=== PATIENT | male | born 1935 | race Caucasian/White ===

== ENCOUNTER 2017-03-08 18:52 | Inpatient (IN) | payer MEDICARE ==
[~2017-03-08] VITALS: Ht 175.2 cm; Wt 95.8 kg
--- NOTE | ~2017-03-08 | EKG ---
[place], [place] ELECTROCARDIOGRAM REPORT NAME: KRISTI COLINDRES UNIT #: [id number] ROOM: [id number] DOCTOR: BOGDAN PAGAN MD BIRTHDATE: [birth year] DOS: 03/08/2017 TIME: 2048 hours. FINDINGS: 1. Normal sinus rhythm at a rate of 80 with first-degree AV block. 2. Leftward axis. 3. Poor precordial R-wave progression. 4. Abnormal electrocardiogram. BOGDAN PAGAN MD CM:EKGRPT:ELECTROCARDIOGRAM REPORT [id number] BOGDAN PAGAN MD
[~2017-03-08 18:52] MED LIST: ALBUTEROL2.5 MG/0.5 INH; ALLOPURINOL100 MG PO; AMLODIPINE BESYL5 MG PO; CALCITRIOL0.25 MCG PO; CETIRIZINE10 MG PO; CIPROFLOXACIN500 MG PO; CITRIZINE; COLSALIDE IMPR0.6 MG PO; DOCUSATE SODIU100 M2 PO; FUROSEMIDE40 MG PO; HYDROCHLOROTHIA25 MG PO; KEFLEX500 MG PO; LEVAQUIN250 M1 PO; LEVOTHYROXINE0.05 M1 PO; LOMOTIL 0.025 M1 TA1 PO; MAGNESIUM OXID400 MG PO; MEDROL DOSEPAK4 MG PO; Magnesium Oxid400 MG PO; NIFEDIPINE90 MG PO; NISOLDIPINE; PENNSAID112 GM TP; PERCOCET 325 MG1 TA7 PO; PRANDIN1 MG PO; REPAGLINIDE1 M1 PO; TERAZOSIN HCL1 M1 PO; VITAMIN D50000 I3 PO; ZITHROMAX250 MG PO; ZOCOR40 MG PO; ZOFRAN ODT4 MG SL; ZOFRAN4 MG PO; ZYRTEC10 MG PO
[2017-03-08 19:04] VITALS: BP 120/76
[2017-03-08 20:43] VITALS: BP 91/46; BP 98/46; BP 99/39
[2017-03-08 21:11] VITALS: BP 133/56
[2017-03-08 21:49] LABS: BASO % 0.2 % (0.0-1.0); EOS # 0.1 10*3/uL (0.0-0.4); EOS % 1.6 % (1.0-4.0); HEMATOCRIT 25.7 % (42.0-52.0); HEMOGLOBIN 8.2 g/dl (14.0-18.0); LYMPH # 2.4 10*3/uL (1.3-4.4); LYMPH % 29.2 % (27.0-41.0); MEAN CELL VOLUME 103.6 fl (80.0-94.0); MEAN CORPUSCULAR HGB 33.1 pg (27.0-31.0); MEAN CORPUSCULAR HGB CONC 31.9 g/dl (33.0-37.0); MEAN PLATELET VOLUME 9.6 fl (9.6-12.3); MONO # 0.5 10*3/uL (0.1-1.0); MONO % 6.5 % (3.0-9.0); NEUT # 5.1 10*3/uL (2.3-7.9); NEUT % 62.3 % (47.0-73.0); PLATELET COUNT AUTOMATED 335 10*3/uL (130-400); RED BLOOD COUNT 2.48 10*6/uL (4.50-5.90); RED CELL DISTRI WIDTH 12.4 % (0-14.5); WHITE BLOOD COUNT 8.1 10*3/uL (4.8-10.8)
[2017-03-08 21:53] LABS: POTASSIUM 4.4 mmol/L (3.5-5.1)
[2017-03-08 22:30] VITALS: BP 123/47; BP 96/38
[2017-03-09] VITALS: BP 100/42
[2017-03-09 00:46] LABS: CKMB 1.1 ng/ml (0.5-3.6); CPK 97 U/L (39-308)
[2017-03-09 00:47] LABS: TROPONIN I < 0.015 ng/ml (<0.045)
[2017-03-09 04:00] VITALS: BP 134/60
[2017-03-09 06:58] LABS: HEMATOCRIT 22.1 % (42.0-52.0); HEMOGLOBIN 7.5 g/dl (14.0-18.0); MEAN CORPUSCULAR HGB 33.3 pg (27.0-31.0); MEAN CORPUSCULAR HGB CONC 33.9 g/dl (33.0-37.0); MEAN PLATELET VOLUME 10.2 fl (9.6-12.3); PLATELET COUNT AUTOMATED 265 10*3/uL (130-400); RED BLOOD COUNT 2.25 10*6/uL (4.50-5.90); RED CELL DISTRI WIDTH 12.7 % (0-14.5); WHITE BLOOD COUNT 8.9 10*3/uL (4.8-10.8)
[2017-03-09 07:02] LABS: MEAN CELL VOLUME 98.2 fl (80.0-94.0)
[2017-03-09 07:14] LABS: POTASSIUM 4.4 mmol/L (3.5-5.1)
[2017-03-09 07:25] LABS: ALBUMIN 2.8 gm/dl (3.1-4.5); BILIRUBIN, TOTAL 0.5 mg/dl (0.2-1.0); MAGNESIUM 1.7 mg/dL (1.5-2.1); PHOSPHOROUS 2.2 mg/dL (2.5-4.9); TOTAL PROTEIN 5.8 gm/dL (6.4-8.2)
[2017-03-09 07:30] LABS: CPK 157 U/L (39-308); TROPONIN I < 0.015 ng/ml (<0.045)
[2017-03-09 07:40] LABS: HEMOGLOBIN A1c 5.3 % (4.8-5.6)
[2017-03-09 08:00] VITALS: BP 113/56
[2017-03-09] MEDS ORDERED: ZYRTEC10 MG PO (09:36)
[2017-03-09] MEDS ORDERED: TRIPHROCAPS SOFT1 MG PO (09:36)
[2017-03-09 12:00] VITALS: BP 120/56
[2017-03-09 12:46] LABS: CPK 156 U/L (39-308)
[2017-03-09 12:47] LABS: TROPONIN I < 0.015 ng/ml (<0.045)
[2017-03-09 16:00] VITALS: BP 128/37
[2017-03-09 20:00] VITALS: BP 140/64
[2017-03-10] VITALS: BP 102/50
[2017-03-10 08:00] VITALS: BP 152/56
[2017-03-10 12:00] VITALS: BP 131/60
== END 2017-03-10 16:10 | disposition home health service (06) | DRG 314 ==
LOC: ED 18:52 → EDHOLD 21:40 → 4E 21:40
PROVIDERS: Student in an Organized Health Care Education/Training Program
DX: I95.9 Hypotension, unspecified (principal); N18.6 End stage renal disease; E44.0 Moderate protein-calorie malnutrition; E83.39 Other disorders of phosphorus metabolism; E11.22 Type 2 diabetes mellitus with diabetic chronic kidney disease; I12.0 Hypertensive chronic kidney disease with stage 5 chronic kidney disease or end stage renal disease; Q61.3 Polycystic kidney, unspecified; S89.90XA Unspecified injury of unspecified lower leg, initial encounter; D53.9 Nutritional anemia, unspecified; W18.30XA Fall on same level, unspecified, initial encounter; Y93.89 Activity, other specified; Y92.89 Other specified places as the place of occurrence of the external cause; Y99.8 Other external cause status; N40.0 Benign prostatic hyperplasia without lower urinary tract symptoms; Z99.2 Dependence on renal dialysis; M1A.9XX0 Chronic gout, unspecified, without tophus (tophi); E03.9 Hypothyroidism, unspecified; Z98.42 Cataract extraction status, left eye; Z98.41 Cataract extraction status, right eye; Z83.3 Family history of diabetes mellitus; E66.9 Obesity, unspecified; Z68.31 Body mass index [BMI] 31.0-31.9, adult; K57.30 Diverticulosis of large intestine without perforation or abscess without bleeding

== ENCOUNTER → 2017-07-25 | Outpatient (CLI) | payer MEDICARE ==
[~2017-07-25] MED LIST changes: +TRIPHROCAPS SOFT1 MG PO
[2017-07-25 12:12] LABS: THYROID STIM HORMONE (HS) 3.53 uIU/ml (0.358-4.75)
== END | disposition home or self-care (01) ==
LOC: LAB 11:12
PROVIDERS: Family Medicine
DX: E11.9 Type 2 diabetes mellitus without complications (principal); E78.00 Pure hypercholesterolemia, unspecified; E03.9 Hypothyroidism, unspecified

== ENCOUNTER 2018-10-25 13:12 | Emergency (ER) | payer MEDICARE, MEDICAID ==
[~2018-10-25] VITALS: Ht 175.2 cm
[2018-10-25 13:16] VITALS: BP 152/55
[2018-10-25 15:01] LABS: BASO % 0.6 % (0.0-1.0); EOS # 0.2 10*3/uL (0.0-0.4); EOS % 3.9 % (1.0-4.0); HEMATOCRIT 37.5 % (42.0-52.0); HEMOGLOBIN 11.8 g/dl (14.0-18.0); LYMPH # 1.3 10*3/uL (1.3-4.4); LYMPH % 24.5 % (27.0-41.0); MEAN CELL VOLUME 103.6 fl (80.0-94.0); MEAN CORPUSCULAR HGB 32.6 pg (27.0-31.0); MEAN CORPUSCULAR HGB CONC 31.5 g/dl (33.0-37.0); MONO # 0.6 10*3/uL (0.1-1.0); MONO % 10.9 % (3.0-9.0); NEUT # 3.2 10*3/uL (2.3-7.9); NEUT % 59.7 % (47.0-73.0); PLATELET COUNT AUTOMATED 159 10*3/uL (130-400); RED BLOOD COUNT 3.62 10*6/uL (4.50-5.90); RED CELL DISTRI WIDTH 12.6 % (0-14.5); WHITE BLOOD COUNT 5.4 10*3/uL (4.8-10.8)
[2018-10-25 15:17] LABS: ALBUMIN 3.3 gm/dl (3.1-4.5); CREATININE 2.11 mg/dL (0.70-1.30); POTASSIUM 4.5 mmol/L (3.5-5.1); TOTAL PROTEIN 6.8 gm/dL (6.4-8.2)
== END 2018-10-25 16:09 | disposition home or self-care (01) ==
LOC: ED 13:12
PROVIDERS: Emergency Medicine
DX: K40.90 Unilateral inguinal hernia, without obstruction or gangrene, not specified as recurrent (principal); L30.4 Erythema intertrigo; E78.5 Hyperlipidemia, unspecified; E66.9 Obesity, unspecified; E03.9 Hypothyroidism, unspecified; M10.9 Gout, unspecified; I12.0 Hypertensive chronic kidney disease with stage 5 chronic kidney disease or end stage renal disease; E11.22 Type 2 diabetes mellitus with diabetic chronic kidney disease; N18.6 End stage renal disease; Z99.2 Dependence on renal dialysis; Z79.899 Other long term (current) drug therapy

== ENCOUNTER → 2018-12-14 | Day surgery (SDC) | payer MEDICARE ==
[~2018-12-14] VITALS: Ht 175.2 cm; Wt 90.7 kg
[~2018-12-14] MED LIST changes: +ACTOS15 M1 PO; +ASPIR LOW81 MG PO; +COLACE100 MG PO; +NORCO 5-325 TA1 EACH PO
[2018-12-14 07:00] VITALS: BP 140/61
--- NOTE | 2018-12-14 08:07 | NUR ---
RIGHT GROIN SHAVED WITH CLIPPERS. REDDENED AREAS NOTED ON THIGHS, UPPER ABDOMEN, BACK, AND UPPER ARRMS. PT. STATES THAT HE THINKS HE HAD ALLERGIC REACTION TO SOMETHING AND STATES THAT DR. NICKERSON IS AWARE.
[2018-12-14 11:22] VITALS: BP 143/55
[2018-12-14 11:37] VITALS: BP 126/50
[2018-12-14 11:52] VITALS: BP 129/51
[2018-12-14 12:07] VITALS: BP 132/52
[2018-12-14 12:34] VITALS: BP 129/52
== END | disposition home or self-care (01) ==
LOC: SDC 11-22 12:30 → EDSTATUS 12-13 14:45 → SDC 12-13 14:45
PROVIDERS: Anesthesiology
DX: K40.90 Unilateral inguinal hernia, without obstruction or gangrene, not specified as recurrent (principal); K29.70 Gastritis, unspecified, without bleeding; I13.2 Hypertensive heart and chronic kidney disease with heart failure and with stage 5 chronic kidney disease, or end stage renal disease; E11.22 Type 2 diabetes mellitus with diabetic chronic kidney disease; N18.6 End stage renal disease; I50.9 Heart failure, unspecified; E11.40 Type 2 diabetes mellitus with diabetic neuropathy, unspecified; J44.9 Chronic obstructive pulmonary disease, unspecified; N40.0 Benign prostatic hyperplasia without lower urinary tract symptoms; F32.9 Major depressive disorder, single episode, unspecified; E66.9 Obesity, unspecified; Z68.29 Body mass index [BMI] 29.0-29.9, adult; Z88.0 Allergy status to penicillin; Z90.49 Acquired absence of other specified parts of digestive tract; Z98.890 Other specified postprocedural states; Z98.41 Cataract extraction status, right eye; Z79.82 Long term (current) use of aspirin; Z83.3 Family history of diabetes mellitus; Z79.899 Other long term (current) drug therapy

== ENCOUNTER → 2019-10-05 | Outpatient (CLI) | payer MEDICARE, OTHER ==
[2019-10-05 11:50] LABS: ALBUMIN 3.3 gm/dl (3.1-4.5); BILIRUBIN, DIRECT 0.2 mg/dL (0.0-0.2); TOTAL PROTEIN 6.9 gm/dL (6.4-8.2)
[2019-10-05 11:55] LABS: THYROID STIM HORMONE (HS) 5.77 uIU/ml (0.358-4.75)
== END | disposition home or self-care (01) ==
LOC: LAB 11:01
PROVIDERS: Internal Medicine Nephrology
DX: E11.9 Type 2 diabetes mellitus without complications (principal); E03.9 Hypothyroidism, unspecified; I10 Essential (primary) hypertension

== ENCOUNTER → 2019-12-12 | Outpatient (CLI) | payer OTHER ==
[2019-12-12 11:59] LABS: URIC ACID 0.8 mg/dL (3.5-7.2)
== END | disposition home or self-care (01) ==
LOC: LAB 11:09
PROVIDERS: Family Medicine
DX: E11.9 Type 2 diabetes mellitus without complications (principal); M10.9 Gout, unspecified; E03.9 Hypothyroidism, unspecified; E78.00 Pure hypercholesterolemia, unspecified

== ENCOUNTER 2019-12-23 18:13 | Emergency (ER) | payer MEDICARE, OTHER ==
[~2019-12-23] VITALS: Ht 175.2 cm; Wt 84.4 kg
[2019-12-23 18:15] VITALS: BP 132/66
[2019-12-23 20:40] LABS: BASO % 0.3 % (0.0-1.0); EOS # 0.1 10*3/uL (0.0-0.4); EOS % 1.4 % (1.0-4.0); HEMATOCRIT 34.4 % (42.0-52.0); LYMPH # 1.5 10*3/uL (1.3-4.4); LYMPH % 20.3 % (27.0-41.0); MEAN CELL VOLUME 103.9 fl (80.0-94.0); MEAN CORPUSCULAR HGB 33.2 pg (27.0-31.0); MEAN PLATELET VOLUME 10.4 fl (9.6-12.3); MONO # 0.7 10*3/uL (0.1-1.0); MONO % 8.8 % (3.0-9.0); NEUT # 5.2 10*3/uL (2.3-7.9); NEUT % 69.1 % (47.0-73.0); PLATELET COUNT AUTOMATED 143 10*3/uL (130-400); RED BLOOD COUNT 3.31 10*6/uL (4.50-5.90); WHITE BLOOD COUNT 7.6 10*3/uL (4.8-10.8)
[2019-12-23 20:58] LABS: ALBUMIN 3.1 gm/dl (3.1-4.5); ALKALINE PHOSPHATASE 95 U/L (45-117); BUN 42 mg/dl (7-24); CHLORIDE 105 mmol/L (98-107); CREATININE 4.53 mg/dL (0.70-1.30); POTASSIUM 4.8 mmol/L (3.5-5.1); SGOT/AST 12 IU/L (3-35); SGPT/ALT 16 U/L (12-78); SODIUM 140 mmol/L (136-145); TOTAL PROTEIN 6.1 gm/dL (6.4-8.2)
[2019-12-23 21:01] LABS: TROPONIN I < 0.015 ng/ml (<0.045)
== END 2019-12-23 22:49 | disposition home or self-care (01) ==
LOC: ED 18:13
PROVIDERS: Emergency Medicine
DX: R04.0 Epistaxis (principal); Z90.49 Acquired absence of other specified parts of digestive tract; E78.5 Hyperlipidemia, unspecified; E03.9 Hypothyroidism, unspecified; E66.9 Obesity, unspecified; I13.2 Hypertensive heart and chronic kidney disease with heart failure and with stage 5 chronic kidney disease, or end stage renal disease; E11.22 Type 2 diabetes mellitus with diabetic chronic kidney disease; N18.6 End stage renal disease; I50.9 Heart failure, unspecified; Z99.2 Dependence on renal dialysis; Z88.0 Allergy status to penicillin; Z79.899 Other long term (current) drug therapy; Z79.82 Long term (current) use of aspirin

== ENCOUNTER → 2020-10-01 | Outpatient (CLI) | payer MEDICARE, OTHER ==
[~2020-10-01] MED LIST changes: +DECADRON6 M1 PO
== END | disposition home or self-care (01) ==
LOC: US 09-22 11:30
PROVIDERS: ATTEND Podiatrist
DX: R22.42 Localized swelling, mass and lump, left lower limb (principal)

== ENCOUNTER 2020-11-02 18:24 | Emergency (ER) | payer MEDICARE, OTHER ==
[~2020-11-02] VITALS: Wt 81.6 kg
[2020-11-02 18:24] VITALS: BP 144/69
[~2020-11-02 18:24] MED LIST changes: -DECADRON6 M1 PO
[2020-11-02 19:37] LABS: BASO % 0.2 % (0.0-1.0); EOS % 0.7 % (1.0-4.0); HEMATOCRIT 38.1 % (42.0-52.0); LYMPH # 1.3 10*3/uL (1.3-4.4); LYMPH % 29.3 % (27.0-41.0); MEAN CELL VOLUME 101.6 fl (80.0-94.0); MEAN CORPUSCULAR HGB 31.7 pg (27.0-31.0); MEAN CORPUSCULAR HGB CONC 31.2 g/dl (33.0-37.0); MEAN PLATELET VOLUME 9.6 fl (9.6-12.3); MONO # 0.4 10*3/uL (0.1-1.0); MONO % 9.1 % (3.0-9.0); NEUT # 2.7 10*3/uL (2.3-7.9); PLATELET COUNT AUTOMATED 170 10*3/uL (130-400); RED BLOOD COUNT 3.75 10*6/uL (4.50-5.90); RED CELL DISTRI WIDTH 12.9 % (0-14.5); WHITE BLOOD COUNT 4.4 10*3/uL (4.8-10.8)
[2020-11-02 19:52] LABS: ALBUMIN 2.7 gm/dl (3.1-4.5); CREATININE 4.04 mg/dL (0.70-1.30); POTASSIUM 4.5 mmol/L (3.5-5.1); TOTAL PROTEIN 6.4 gm/dL (6.4-8.2)
[2020-11-02] MEDS ORDERED: ZITHROMAX250 MG PO (20:39)
[2020-11-02] MEDS ORDERED: DECADRON6 M1 PO (20:39)
== END 2020-11-02 21:15 | disposition home or self-care (01) ==
LOC: ED 18:24
PROVIDERS: Internal Medicine
DX: U07.1 COVID-19 (principal); D53.9 Nutritional anemia, unspecified; N18.6 End stage renal disease; J18.9 Pneumonia, unspecified organism; Z88.0 Allergy status to penicillin; Z79.899 Other long term (current) drug therapy; Z79.82 Long term (current) use of aspirin

== ENCOUNTER 2020-12-10 04:47 | Emergency (ER) | payer MEDICARE, OTHER ==
[~2020-12-10] VITALS: Ht 175.2 cm; Wt 85.7 kg
[~2020-12-10 04:47] MED LIST changes: +DECADRON6 M1 PO
[2020-12-10 06:30] LABS: BASO % 0.1 % (0.0-1.0); EOS % 0.4 % (1.0-4.0); HEMATOCRIT 31.5 % (42.0-52.0); LYMPH # 1.7 10*3/uL (1.3-4.4); LYMPH % 14.5 % (27.0-41.0); MEAN CELL VOLUME 99.4 fl (80.0-94.0); MEAN CORPUSCULAR HGB 30.9 pg (27.0-31.0); MEAN CORPUSCULAR HGB CONC 31.1 g/dl (33.0-37.0); MEAN PLATELET VOLUME 9.7 fl (9.6-12.3); MONO # 0.7 10*3/uL (0.1-1.0); MONO % 6.1 % (3.0-9.0); NEUT # 8.9 10*3/uL (2.3-7.9); NEUT % 78.5 % (47.0-73.0); PLATELET COUNT AUTOMATED 222 10*3/uL (130-400); RED BLOOD COUNT 3.17 10*6/uL (4.50-5.90); RED CELL DISTRI WIDTH 13.8 % (0-14.5); WHITE BLOOD COUNT 11.4 10*3/uL (4.8-10.8)
[2020-12-10 06:52] LABS: ALBUMIN 2.4 gm/dl (3.1-4.5); ALKALINE PHOSPHATASE 88 U/L (45-117); BUN 26 mg/dl (7-24); CHLORIDE 107 mmol/L (98-107); CREATININE 3.53 mg/dL (0.70-1.30); LIPASE 46 U/L (73-393); POTASSIUM 3.7 mmol/L (3.5-5.1); SGOT/AST 14 IU/L (3-35); SGPT/ALT 9 U/L (12-78); SODIUM 139 mmol/L (136-145); TOTAL PROTEIN 6.1 gm/dL (6.4-8.2)
[2020-12-10 06:55] LABS: TROPONIN I < 0.015 ng/ml (<0.045)
[2020-12-10 07:30] VITALS: BP 144/56
[2021-02-21] MEDS ORDERED: AVPAK AZITHROM250 MG PO (20:07)
== END 2020-12-10 09:25 | disposition home or self-care (01) ==
LOC: ED 04:47
PROVIDERS: Emergency Medicine
DX: I12.0 Hypertensive chronic kidney disease with stage 5 chronic kidney disease or end stage renal disease (principal); E11.22 Type 2 diabetes mellitus with diabetic chronic kidney disease; N18.6 End stage renal disease; R11.0 Nausea; M10.9 Gout, unspecified; E78.5 Hyperlipidemia, unspecified; E03.9 Hypothyroidism, unspecified; E66.9 Obesity, unspecified; Z79.899 Other long term (current) drug therapy; Z99.2 Dependence on renal dialysis; Z79.82 Long term (current) use of aspirin; Z90.49 Acquired absence of other specified parts of digestive tract; Z98.890 Other specified postprocedural states; Z79.2 Long term (current) use of antibiotics; Z88.0 Allergy status to penicillin

== ENCOUNTER 2021-01-05 20:23 | Emergency (ER) | payer MEDICARE, OTHER ==
[~2021-01-05] VITALS: Ht 170.1 cm; Wt 81.6 kg
[2021-01-05 20:24] VITALS: BP 162/70
[2021-01-05 20:57] LABS: BASO % 0.1 % (0.0-1.0); EOS % 0.3 % (1.0-4.0); LYMPH # 0.8 10*3/uL (1.3-4.4); LYMPH % 12.5 % (27.0-41.0); MEAN PLATELET VOLUME 8.8 fl (9.6-12.3); MONO # 0.5 10*3/uL (0.1-1.0); MONO % 7.3 % (3.0-9.0); NEUT # 5.4 10*3/uL (2.3-7.9); NEUT % 79.5 % (47.0-73.0); PLATELET COUNT AUTOMATED 308 10*3/uL (130-400); RED CELL DISTRI WIDTH 14.6 % (0-14.5); WHITE BLOOD COUNT 6.7 10*3/uL (4.8-10.8)
[2021-01-05 21:13] LABS: ALBUMIN 2.2 gm/dl (3.1-4.5); CREATININE 2.74 mg/dL (0.70-1.30); POTASSIUM 4.3 mmol/L (3.5-5.1); TOTAL PROTEIN 6.2 gm/dL (6.4-8.2)
[2021-02-21] MEDS ORDERED: AVPAK AZITHROM250 MG PO (20:07)
== END 2021-01-05 23:27 | disposition home or self-care (01) ==
LOC: ED 20:23
PROVIDERS: Nurse Practitioner Family
DX: K59.00 Constipation, unspecified (principal); E11.9 Type 2 diabetes mellitus without complications; F32.9 Major depressive disorder, single episode, unspecified; I50.9 Heart failure, unspecified; Z88.0 Allergy status to penicillin; Z79.2 Long term (current) use of antibiotics; Z79.899 Other long term (current) drug therapy; Z79.82 Long term (current) use of aspirin; Z90.89 Acquired absence of other organs; Z90.49 Acquired absence of other specified parts of digestive tract

== ENCOUNTER 2021-02-20 14:09 | Emergency (ER) | payer MEDICARE, OTHER ==
[~2021-02-20] VITALS: Ht 175.2 cm; Wt 84.4 kg
[2021-02-20 15:15] LABS: BASO % 0.2 % (0.0-1.0); EOS # 0.1 10*3/uL (0.0-0.4); EOS % 1.4 % (1.0-4.0); HEMATOCRIT 38.2 % (42.0-52.0); LYMPH # 1.2 10*3/uL (1.3-4.4); LYMPH % 23.8 % (27.0-41.0); MEAN CELL VOLUME 98.2 fl (80.0-94.0); MEAN CORPUSCULAR HGB 29.8 pg (27.0-31.0); MEAN CORPUSCULAR HGB CONC 30.4 g/dl (33.0-37.0); MEAN PLATELET VOLUME 9.8 fl (9.6-12.3); MONO # 0.5 10*3/uL (0.1-1.0); MONO % 9.5 % (3.0-9.0); NEUT # 3.1 10*3/uL (2.3-7.9); NEUT % 64.7 % (47.0-73.0); PLATELET COUNT AUTOMATED 185 10*3/uL (130-400); RED BLOOD COUNT 3.89 10*6/uL (4.50-5.90); RED CELL DISTRI WIDTH 16.5 % (0-14.5); WHITE BLOOD COUNT 4.8 10*3/uL (4.8-10.8)
[2021-02-20 15:25] LABS: ACT PARTIAL THROMBO TIME 29.3 SECONDS (20.0-32.1); INTERNATIONAL NORM RATIO 1.1 (2.0-3.5)
[2021-02-20 15:33] LABS: ALBUMIN 2.4 gm/dl (3.1-4.5); ALKALINE PHOSPHATASE 103 U/L (45-117); BUN 13 mg/dl (7-24); CHLORIDE 99 mmol/L (98-107); CPK 27 U/L (39-308); CREATININE 3.78 mg/dL (0.70-1.30); POTASSIUM 4.1 mmol/L (3.5-5.1); SGOT/AST 6 IU/L (3-35); SGPT/ALT 11 U/L (12-78); SODIUM 134 mmol/L (136-145)
[2021-02-20 15:41] LABS: TROPONIN I < 0.015 ng/ml (<0.045)
[2021-02-20 17:27] VITALS: BP 152/64
[2021-02-20] MEDS ORDERED: ZOFRAN4 MG PO (19:32)
[2021-02-21] MEDS ORDERED: AVPAK AZITHROM250 MG PO (20:07)
== END 2021-02-20 23:39 | disposition home or self-care (01) ==
LOC: ED 14:09
PROVIDERS: Emergency Medicine
DX: R53.83 Other fatigue (principal); G47.00 Insomnia, unspecified; R11.2 Nausea with vomiting, unspecified; J18.9 Pneumonia, unspecified organism; I12.9 Hypertensive chronic kidney disease with stage 1 through stage 4 chronic kidney disease, or unspecified chronic kidney disease; E11.22 Type 2 diabetes mellitus with diabetic chronic kidney disease; N18.6 End stage renal disease; E03.9 Hypothyroidism, unspecified; M10.9 Gout, unspecified; Z88.0 Allergy status to penicillin; Z79.899 Other long term (current) drug therapy; Z79.82 Long term (current) use of aspirin; Z98.890 Other specified postprocedural states; Z90.49 Acquired absence of other specified parts of digestive tract

== ENCOUNTER 2021-04-28 18:35 | Inpatient (IN) | payer MEDICARE, OTHER ==
[~2021-04-28] VITALS: Ht 175.3 cm; Wt 79.6 kg
[~2021-04-28 18:35] MED LIST changes: +AVPAK AZITHROM250 MG PO
[2021-04-28 18:51] VITALS: BP 139/69
[2021-04-28 19:10] LABS: BASO % 0.3 % (0.0-1.0); EOS # 0.1 10*3/uL (0.0-0.4); EOS % 1.1 % (1.0-4.0); HEMATOCRIT 41.5 % (42.0-52.0); LYMPH # 2.5 10*3/uL (1.3-4.4); LYMPH % 38.1 % (27.0-41.0); MEAN CELL VOLUME 105.3 fl (80.0-94.0); MEAN CORPUSCULAR HGB CONC 29.4 g/dl (33.0-37.0); MEAN PLATELET VOLUME 9.2 fl (9.6-12.3); MONO % 14.5 % (3.0-9.0); NEUT % 45.7 % (47.0-73.0); PLATELET COUNT AUTOMATED 257 10*3/uL (130-400); RED BLOOD COUNT 3.94 10*6/uL (4.50-5.90); RED CELL DISTRI WIDTH 14.9 % (0-14.5); WHITE BLOOD COUNT 6.5 10*3/uL (4.8-10.8)
[2021-04-28 20:10] LABS: ALBUMIN 2.6 gm/dl (3.1-4.5); ALKALINE PHOSPHATASE 224 U/L (45-117); BUN 31 mg/dl (7-24); CHLORIDE 100 mmol/L (98-107); CREATININE 4.05 mg/dL (0.70-1.30); POTASSIUM 4.2 mmol/L (3.5-5.1); SGOT/AST 22 IU/L (3-35); SGPT/ALT 27 U/L (12-78); SODIUM 137 mmol/L (136-145); TOTAL PROTEIN 6.8 gm/dL (6.4-8.2)
[2021-04-28 20:16] LABS: TROPONIN I < 0.015 ng/ml (<0.045)
[2021-04-28 20:18] LABS: BILIRUBIN Negative (Negative); BLOOD 2+ (Negative); CLARITY Turbid (Clear); COLOR Yellow (Yellow); GLUCOSE Negative (Negative); KETONE Negative (Negative); LEUKO ESTERASE 3+ (Negative); NITRITE Negative (Negative); PH 7.5 (4.5-8.0); SPECIFIC GRAVITY 1.015 (1.001-1.030)
[2021-04-28 20:26] LABS: WBC TNTC wbc/hpf (0-5)
[2021-04-28 22:00] VITALS: BP 148/50
[2021-04-28 23:17] VITALS: BP 138/62
[2021-04-28 23:30] VITALS: BP 118/58
[2021-04-29] VITALS: BP 118/58
[2021-04-29 06:38] LABS: BASO % 0.4 % (0.0-1.0); EOS # 0.1 10*3/uL (0.0-0.4); EOS % 1.3 % (1.0-4.0); HEMATOCRIT 38.9 % (42.0-52.0); LYMPH # 1.7 10*3/uL (1.3-4.4); LYMPH % 32.1 % (27.0-41.0); MEAN CORPUSCULAR HGB 30.7 pg (27.0-31.0); MEAN CORPUSCULAR HGB CONC 30.6 g/dl (33.0-37.0); MEAN PLATELET VOLUME 9.2 fl (9.6-12.3); MONO # 0.8 10*3/uL (0.1-1.0); MONO % 14.2 % (3.0-9.0); NEUT # 2.8 10*3/uL (2.3-7.9); NEUT % 51.8 % (47.0-73.0); PLATELET COUNT AUTOMATED 255 10*3/uL (130-400); RED BLOOD COUNT 3.87 10*6/uL (4.50-5.90); WHITE BLOOD COUNT 5.4 10*3/uL (4.8-10.8)
[2021-04-29 06:40] LABS: MEAN CELL VOLUME 100.5 fl (80.0-94.0)
[2021-04-29 06:43] LABS: ACT PARTIAL THROMBO TIME 31.6 SECONDS (20.0-32.1)
[2021-04-29 07:24] LABS: POTASSIUM 4.3 mmol/L (3.5-5.1)
[2021-04-29 07:43] LABS: ALBUMIN 2.4 gm/dl (3.1-4.5); CREATININE 4.45 mg/dL (0.70-1.30); THYROID STIM HORMONE (HS) 1.82 uIU/ml (0.358-4.75); TOTAL PROTEIN 6.1 gm/dL (6.4-8.2)
[2021-04-29 08:09] LABS: VITAMIN D, 25-HYDROXY 29.4 ng/mL (30-100)
[2021-04-29 12:00] VITALS: BP 130/100
[2021-04-29 16:00] VITALS: BP 103/57
[2021-04-29 20:00] VITALS: BP 127/50
[2021-04-30] VITALS: BP 118/53
[2021-04-30 08:12] VITALS: BP 144/38
[2021-04-30] MEDS ORDERED: CEFUROXIME AXE250 MG PO (11:50)
[2021-04-30 12:22] VITALS: BP 155/64
== END 2021-04-30 14:10 | disposition home or self-care (01) | DRG 689 ==
LOC: ED 18:35 → EDHOLD 21:52 → 4E 21:52
PROVIDERS: Emergency Medicine; Hospitalist; Physician Assistant; ADMIT Student in an Organized Health Care Education/Training Program; ATTEND Student in an Organized Health Care Education/Training Program
DX: N39.0 Urinary tract infection, site not specified (principal); N18.6 End stage renal disease; E44.0 Moderate protein-calorie malnutrition; I12.0 Hypertensive chronic kidney disease with stage 5 chronic kidney disease or end stage renal disease; E03.9 Hypothyroidism, unspecified; N40.0 Benign prostatic hyperplasia without lower urinary tract symptoms; E78.2 Mixed hyperlipidemia; E11.65 Type 2 diabetes mellitus with hyperglycemia; E11.22 Type 2 diabetes mellitus with diabetic chronic kidney disease; R74.8 Abnormal levels of other serum enzymes; D53.9 Nutritional anemia, unspecified; E86.0 Dehydration; M10.00 Idiopathic gout, unspecified site; B96.89 Other specified bacterial agents as the cause of diseases classified elsewhere; K57.90 Diverticulosis of intestine, part unspecified, without perforation or abscess without bleeding; K59.04 Chronic idiopathic constipation; Z99.2 Dependence on renal dialysis; Z88.0 Allergy status to penicillin; Z90.49 Acquired absence of other specified parts of digestive tract; Z98.42 Cataract extraction status, left eye; Z98.41 Cataract extraction status, right eye; Z82.0 Family history of epilepsy and other diseases of the nervous system; Z84.1 Family history of disorders of kidney and ureter; Z83.3 Family history of diabetes mellitus; Z86.16 Personal history of COVID-19; Z79.899 Other long term (current) drug therapy; Z79.82 Long term (current) use of aspirin; Z68.25 Body mass index [BMI] 25.0-25.9, adult

== ENCOUNTER 2021-12-23 06:22 | Inpatient (IN) | payer MEDICARE, OTHER ==
[~2021-12-23] VITALS: Ht 175.2 cm; Wt 88.7 kg
[~2021-12-23 06:22] MED LIST changes: +CEFUROXIME AXE250 MG PO
[2021-12-23 06:31] VITALS: BP 171/75
[2021-12-23 11:23] LABS: BASO % 0.1 % (0.0-1.0); EOS % 0.2 % (1.0-4.0); HEMATOCRIT 36.5 % (42.0-52.0); LYMPH # 0.9 10*3/uL (1.3-4.4); MEAN CELL VOLUME 103.1 fl (80.0-94.0); MEAN CORPUSCULAR HGB 32.8 pg (27.0-31.0); MEAN CORPUSCULAR HGB CONC 31.8 g/dl (33.0-37.0); MONO # 0.6 10*3/uL (0.1-1.0); MONO % 6.9 % (3.0-9.0); NEUT # 7.5 10*3/uL (2.3-7.9); NEUT % 82.3 % (47.0-73.0); PLATELET COUNT AUTOMATED 153 10*3/uL (130-400); RED BLOOD COUNT 3.54 10*6/uL (4.50-5.90); RED CELL DISTRI WIDTH 13.5 % (0-14.5); WHITE BLOOD COUNT 9.1 10*3/uL (4.8-10.8)
[2021-12-23 11:36] LABS: ACT PARTIAL THROMBO TIME 28.3 SECONDS (20.0-32.1); INTERNATIONAL NORM RATIO 1.1 (2.0-3.5)
[2021-12-23 11:48] LABS: ALBUMIN 3.2 gm/dl (3.1-4.5); CREATININE 4.92 mg/dL (0.70-1.30); POTASSIUM 4.1 mmol/L (3.5-5.1); TOTAL PROTEIN 6.4 gm/dL (6.4-8.2)
[2021-12-23 14:30] VITALS: BP 145/56
[2021-12-23 15:15] VITALS: BP 134/54; BP 134/56
[2021-12-23 20:00] VITALS: BP 125/46
[2021-12-24 06:07] LABS: CREATININE 5.2 mg/dL (0.70-1.30); POTASSIUM 4.7 mmol/L (3.5-5.1)
[2021-12-24 06:27] LABS: BASO % 0.2 % (0.0-1.0); EOS # 0.2 10*3/uL (0.0-0.4); EOS % 1.6 % (1.0-4.0); HEMATOCRIT 35.7 % (42.0-52.0); LYMPH # 1.2 10*3/uL (1.3-4.4); LYMPH % 13.1 % (27.0-41.0); MEAN CELL VOLUME 103.8 fl (80.0-94.0); MEAN CORPUSCULAR HGB 32.8 pg (27.0-31.0); MEAN CORPUSCULAR HGB CONC 31.7 g/dl (33.0-37.0); MEAN PLATELET VOLUME 10.7 fl (9.6-12.3); MONO # 0.6 10*3/uL (0.1-1.0); MONO % 6.5 % (3.0-9.0); NEUT # 7.1 10*3/uL (2.3-7.9); NEUT % 78.2 % (47.0-73.0); PLATELET COUNT AUTOMATED 151 10*3/uL (130-400); RED BLOOD COUNT 3.44 10*6/uL (4.50-5.90); RED CELL DISTRI WIDTH 13.6 % (0-14.5); WHITE BLOOD COUNT 9.1 10*3/uL (4.8-10.8)
[2021-12-24 06:36] LABS: BILIRUBIN Negative (Negative); BLOOD Negative (Negative); CLARITY Clear (Clear); COLOR Yellow (Yellow); GLUCOSE 1+ (Negative); KETONE Negative (Negative); LEUKO ESTERASE 2+ (Negative); NITRITE Negative (Negative); PH 7.5 (4.5-8.0); SPECIFIC GRAVITY 1.015 (1.001-1.030)
[2021-12-24 08:00] VITALS: BP 111/53
[2021-12-24 11:33] LABS: BACTERIA 2+; WBC 31-40 wbc/hpf (0-5)
[2021-12-24 12:00] VITALS: BP 91/66
[2021-12-24 20:00] VITALS: BP 93/61
[2021-12-25] VITALS: BP 128/49
[2021-12-25 06:50] LABS: BASO % 0.3 % (0.0-1.0); EOS # 0.3 10*3/uL (0.0-0.4); EOS % 3.3 % (1.0-4.0); HEMATOCRIT 33.9 % (42.0-52.0); LYMPH # 1.6 10*3/uL (1.3-4.4); LYMPH % 19.9 % (27.0-41.0); MEAN CELL VOLUME 101.8 fl (80.0-94.0); MEAN CORPUSCULAR HGB 32.7 pg (27.0-31.0); MEAN CORPUSCULAR HGB CONC 32.2 g/dl (33.0-37.0); MEAN PLATELET VOLUME 10.4 fl (9.6-12.3); MONO # 0.7 10*3/uL (0.1-1.0); MONO % 8.2 % (3.0-9.0); NEUT # 5.4 10*3/uL (2.3-7.9); NEUT % 67.9 % (47.0-73.0); PLATELET COUNT AUTOMATED 133 10*3/uL (130-400); RED BLOOD COUNT 3.33 10*6/uL (4.50-5.90); RED CELL DISTRI WIDTH 13.3 % (0-14.5); WHITE BLOOD COUNT 7.9 10*3/uL (4.8-10.8)
[2021-12-25 07:10] LABS: CREATININE 3.88 mg/dL (0.70-1.30); POTASSIUM 4.6 mmol/L (3.5-5.1)
[2021-12-25 08:00] VITALS: BP 136/56
[2021-12-25 12:00] VITALS: BP 110/50
[2021-12-25 16:00] VITALS: BP 96/56
[2021-12-25 20:00] VITALS: BP 142/41
[2021-12-25 20:56] VITALS: BP 126/44
[2021-12-26] VITALS: BP 125/44
[2021-12-26 08:00] VITALS: BP 125/50
[2021-12-26 12:00] VITALS: BP 133/51
[2021-12-26 16:00] VITALS: BP 125/51
[2021-12-26 20:00] VITALS: BP 131/42
[2021-12-27] VITALS: BP 117/41
[2021-12-27 06:03] LABS: CREATININE 5.43 mg/dL (0.70-1.30); POTASSIUM 4.3 mmol/L (3.5-5.1)
[2021-12-27 07:37] LABS: BASO % 0.3 % (0.0-1.0); EOS # 0.3 10*3/uL (0.0-0.4); EOS % 4.3 % (1.0-4.0); HEMATOCRIT 29.7 % (42.0-52.0); LYMPH % 28.1 % (27.0-41.0); MEAN CORPUSCULAR HGB 32.7 pg (27.0-31.0); MEAN CORPUSCULAR HGB CONC 32.7 g/dl (33.0-37.0); MEAN PLATELET VOLUME 10.7 fl (9.6-12.3); MONO # 0.8 10*3/uL (0.1-1.0); MONO % 11.6 % (3.0-9.0); NEUT % 55.4 % (47.0-73.0); PLATELET COUNT AUTOMATED 153 10*3/uL (130-400); RED BLOOD COUNT 2.97 10*6/uL (4.50-5.90); RED CELL DISTRI WIDTH 13.5 % (0-14.5); WHITE BLOOD COUNT 7.1 10*3/uL (4.8-10.8)
[2021-12-27 12:00] VITALS: BP 154/60
[2021-12-27 16:00] VITALS: BP 125/52
[2021-12-27 20:00] VITALS: BP 106/42
[2021-12-27 23:48] VITALS: BP 151/51
[2021-12-28 06:14] LABS: POTASSIUM 4.6 mmol/L (3.5-5.1)
[2021-12-28 06:17] LABS: BASO % 0.3 % (0.0-1.0); EOS # 0.3 10*3/uL (0.0-0.4); EOS % 3.9 % (1.0-4.0); HEMATOCRIT 29.3 % (42.0-52.0); LYMPH % 29.2 % (27.0-41.0); MEAN CORPUSCULAR HGB 32.4 pg (27.0-31.0); MEAN CORPUSCULAR HGB CONC 33.1 g/dl (33.0-37.0); MEAN PLATELET VOLUME 9.9 fl (9.6-12.3); MONO # 0.7 10*3/uL (0.1-1.0); NEUT # 3.8 10*3/uL (2.3-7.9); NEUT % 56.3 % (47.0-73.0); PLATELET COUNT AUTOMATED 178 10*3/uL (130-400); RED BLOOD COUNT 2.99 10*6/uL (4.50-5.90); RED CELL DISTRI WIDTH 13.1 % (0-14.5); WHITE BLOOD COUNT 6.7 10*3/uL (4.8-10.8)
[2021-12-28 06:32] LABS: CREATININE 5.46 mg/dL (0.70-1.30)
[2021-12-28 12:00] VITALS: BP 148/41
[2021-12-28 16:00] VITALS: BP 134/41
[2021-12-28 20:00] VITALS: BP 142/50
[2021-12-29] VITALS: BP 137/93
[2021-12-29 08:00] VITALS: BP 136/51
[2021-12-29 12:00] VITALS: BP 93/50
[2021-12-29 16:00] VITALS: BP 156/54
[2021-12-29 20:47] VITALS: BP 156/54
[2021-12-30] VITALS: BP 133/46
[2021-12-30] MEDS ORDERED: HYDROCODONE-AC1 EAC1 PO (10:44)
[2021-12-30 12:00] VITALS: BP 129/68
== END 2021-12-30 15:10 | DRG 535 ==
LOC: ED 06:22 → 4E 13:15 → EDHOLD 13:15 → 4E 14:11
PROVIDERS: Emergency Medicine; Family Medicine; Internal Medicine; Registered Nurse; ADMIT Student in an Organized Health Care Education/Training Program; ATTEND Student in an Organized Health Care Education/Training Program
PROC: 5A1D70Z Performance of Urinary Filtration, Intermittent, Less than 6 Hours Per Day (ICD-10-PCS; 2021-12-23)
PROC: 5A1D70Z Performance of Urinary Filtration, Intermittent, Less than 6 Hours Per Day (ICD-10-PCS; principal; 2021-12-24)
PROC: 5A1D70Z Performance of Urinary Filtration, Intermittent, Less than 6 Hours Per Day (ICD-10-PCS; 2021-12-28)
PROC: 5A1D70Z Performance of Urinary Filtration, Intermittent, Less than 6 Hours Per Day (ICD-10-PCS; 2021-12-30)
DX: S32.402A Unspecified fracture of left acetabulum, initial encounter for closed fracture (principal); N18.6 End stage renal disease; E44.0 Moderate protein-calorie malnutrition; I12.0 Hypertensive chronic kidney disease with stage 5 chronic kidney disease or end stage renal disease; Q61.3 Polycystic kidney, unspecified; Z66 Do not resuscitate; Z20.822 Contact with and (suspected) exposure to COVID-19; M10.9 Gout, unspecified; E03.9 Hypothyroidism, unspecified; N40.0 Benign prostatic hyperplasia without lower urinary tract symptoms; E11.22 Type 2 diabetes mellitus with diabetic chronic kidney disease; E11.65 Type 2 diabetes mellitus with hyperglycemia; X58.XXXA Exposure to other specified factors, initial encounter; Z51.5 Encounter for palliative care; D53.9 Nutritional anemia, unspecified; I77.0 Arteriovenous fistula, acquired; Z82.5 Family history of asthma and other chronic lower respiratory diseases; Z90.49 Acquired absence of other specified parts of digestive tract; Z82.0 Family history of epilepsy and other diseases of the nervous system; Y93.89 Activity, other specified; Y92.89 Other specified places as the place of occurrence of the external cause; Y99.8 Other external cause status; Z79.899 Other long term (current) drug therapy; Z68.28 Body mass index [BMI] 28.0-28.9, adult

== ENCOUNTER → 2022-01-07 | Outpatient (CLI) | payer MEDICARE, OTHER ==
[~2022-01-07] MED LIST changes: +HYDROCODONE-AC1 EAC1 PO
== END | disposition home or self-care (01) ==
LOC: ORTHO 09:33
PROVIDERS: ATTEND Orthopaedic Surgery
DX: S32.402A Unspecified fracture of left acetabulum, initial encounter for closed fracture (principal); X58.XXXA Exposure to other specified factors, initial encounter; Y93.89 Activity, other specified; Y92.89 Other specified places as the place of occurrence of the external cause; Y99.8 Other external cause status

== ENCOUNTER → 2022-02-14 | Outpatient (CLI) | payer MEDICARE, OTHER | END | disposition home or self-care (01) | LOC: ORTHO 00:29 | PROVIDERS: ATTEND Orthopaedic Surgery | DX: S32.402D Unspecified fracture of left acetabulum, subsequent encounter for fracture with routine healing (principal); X58.XXXD Exposure to other specified factors, subsequent encounter ==

== ENCOUNTER → 2022-03-21 | Outpatient (CLI) | payer MEDICARE, OTHER | END | disposition home or self-care (01) | LOC: ORTHO 01:39 | PROVIDERS: ATTEND Orthopaedic Surgery | DX: S32.402D Unspecified fracture of left acetabulum, subsequent encounter for fracture with routine healing (principal); X58.XXXD Exposure to other specified factors, subsequent encounter ==

== ENCOUNTER → 2022-05-02 | Outpatient (CLI) | payer MEDICARE, OTHER | END | disposition home or self-care (01) | LOC: ORTHO 05:00 | PROVIDERS: ATTEND Orthopaedic Surgery | DX: S32.402D Unspecified fracture of left acetabulum, subsequent encounter for fracture with routine healing (principal); X58.XXXD Exposure to other specified factors, subsequent encounter ==

== ENCOUNTER 2023-05-25 11:11 | Emergency (ER) | payer MEDICARE, OTHER ==
[~2023-05-25] VITALS: Wt 81.6 kg
[~2023-05-25 11:11] MED LIST changes: +OMEPRAZOLE40 MG PO; +ZITHROMAX TRI-500 M1 PO
[2023-05-25 12:36] LABS: BASO % 0.4 % (0.0-1.0); EOS # 0.1 10*3/uL (0.0-0.4); EOS % 1.1 % (1.0-4.0); HEMATOCRIT 36.9 % (42.0-52.0); LYMPH # 1.5 10*3/uL (1.3-4.4); LYMPH % 21.8 % (27.0-41.0); MEAN CELL VOLUME 103.9 fl (80.0-94.0); MEAN CORPUSCULAR HGB 33.5 pg (27.0-31.0); MEAN CORPUSCULAR HGB CONC 32.2 g/dl (33.0-37.0); MEAN PLATELET VOLUME 10.2 fl (9.6-12.3); MONO # 0.7 10*3/uL (0.1-1.0); MONO % 10.3 % (3.0-9.0); NEUT # 4.6 10*3/uL (2.3-7.9); NEUT % 66.1 % (47.0-73.0); PLATELET COUNT AUTOMATED 181 10*3/uL (130-400); RED BLOOD COUNT 3.55 10*6/uL (4.50-5.90)
[2023-05-25 12:47] LABS: INTERNATIONAL NORM RATIO 1.1 (2.0-3.5)
[2023-05-25 13:04] LABS: POTASSIUM 4.5 mmol/L (3.4-5.1)
[2023-05-25 13:52] VITALS: BP 147/55
== END 2023-05-25 16:08 | disposition home or self-care (01) ==
LOC: ED 11:11
PROVIDERS: Emergency Medicine
DX: R06.02 Shortness of breath (principal); R11.0 Nausea; I50.9 Heart failure, unspecified; E11.9 Type 2 diabetes mellitus without complications; F32.A Depression, unspecified; M10.9 Gout, unspecified; Z90.89 Acquired absence of other organs; Z90.49 Acquired absence of other specified parts of digestive tract; Z98.42 Cataract extraction status, left eye; Z98.41 Cataract extraction status, right eye; Z98.890 Other specified postprocedural states

== ENCOUNTER → 2023-11-16 | Outpatient (CLI) | payer MEDICARE, OTHER | END | disposition home or self-care (01) | LOC: ORTHO 00:35 | PROVIDERS: ATTEND Orthopaedic Surgery | DX: M17.12 Unilateral primary osteoarthritis, left knee (principal); M25.762 Osteophyte, left knee ==